=== PATIENT | female | born 1985 | race African-American/Black ===

== ENCOUNTER 2016-08-08 15:48 | Observation (INO) | payer MEDICAID ==
[2016-08-08 16:44] LABS: URINE BILIRUBIN NEGATIVE (NEG); URINE BLOOD SMALL (NEG); URINE GLUCOSE (UA) NEGATIVE (NEG); URINE KETONE NEGATIVE (NEG); URINE LEUKOCYTE ESTERASE POSITIVE (NEG); URINE NITRITE POSITIVE (NEG); URINE PROTEIN MODERATE (NEG); URINE SPECIFIC GRAVITY 1.025 (1.003-1.030)
[2016-08-08 16:45] LABS: URINE APPEARANCE HAZY; URINE COLOR YELLOW
[2016-08-08 16:53] LABS: URINE BACTERIA 3+; URINE RBC 0-2 /[HPF] (0-5); URINE WBC 45-50 /[HPF] (0-5)
[2016-10-02] MEDS ORDERED: IBUPROFEN800 M1 PO (09:21)
[2016-10-02] MEDS ORDERED: COLACE100 M1 PO (09:23)
[2016-10-02] MEDS ORDERED: FEOSOL325 M1 PO (09:24)
[2016-10-02] MEDS ORDERED: PERCOCET 5-3251 EACH PO (09:28)
[2016-11-14] MEDS ORDERED: LEXAPRO10 M2 PO (02:23)
[2016-11-14] MEDS ORDERED: PYRIDIUM200 M2 PO (02:41)
[2016-11-14] MEDS ORDERED: MACROBID 100 M100 M1 PO (02:41)
[2016-12-20] MEDS ORDERED: NO HOME MEDICATION XX (23:27)
[2016-12-21] MEDS ORDERED: ZOFRAN ODT4 MG PO (01:51)
== END 2016-08-08 18:15 ==
LOC: LDR 15:48
PROVIDERS: ADMIT Obstetrics & Gynecology
DX: O99.89 Other specified diseases and conditions complicating pregnancy, childbirth and the puerperium (principal); R10.2 Pelvic and perineal pain; O98.313 Other infections with a predominantly sexual mode of transmission complicating pregnancy, third trimester; A56.8 Sexually transmitted chlamydial infection of other sites; Z3A.31 31 weeks gestation of pregnancy; Z98.890 Other specified postprocedural states

== ENCOUNTER 2016-09-15 00:42 | Inpatient (IN) | payer MEDICAID ==
[2016-09-15] MEDS ORDERED: IRON325 M3 PO (01:11)
[2016-09-15] MEDS ORDERED: PRENATAL-U CAPS1 CAP PO (01:11)
[2016-09-15 01:16] LABS: BASO % 0.1 % (0-2); EOS % 2.1 % (0-7); EOSINOPHIL ABSOLUTE COUNT 0.2 tho/cmm (0.0-0.7); HCT-HEMATOCRIT 34.8 % (34.0-49.0); HGB-HEMOGLOBIN 11.4 gm/dl (12.0-15.5); IMMATURE GRANULOCYTES ABSOLUTE 0.03 tho/cmm (0-0.03); IMMATURE GRANULOCYTES PERCENT 0.3 % (0-0.3); LYMPH % 15.2 % (20-45); LYMPH ABSOLUTE COUNT 1.4 tho/cmm (0.8-4.5); MCH (MEAN CORPUSCULAR HGB) 26.7 pg (28.0-32.0); MCHC MEAN CORPUSCULAR HGB CONC 32.8 % (32.0-36.0); MCV (MEAN CELL VOLUME) 81.5 fl (82.0-96.0); MEAN PLATELET VOLUME 9.8 cmc (9.4-12.4); MONO % 3.3 % (0-12); MONOCYTE ABSOLUTE COUNT 0.3 tho/cmm (0.0-1.2); NEUTROPHIL ABSOLUTE COUNT 7.5 tho/cmm (1.6-8.0); NEUTROPHIL-AUTOMATED 7.5 tho/cmm (1.6-8.0); PLATELET COUNT 327 tho/cmm (150-450); RED BLOOD COUNT 4.27 mil/cmm (4.00-5.20); RED CELL DISTRIBUTION WIDTH 15.5 % (12.4-16.4); WHITE BLOOD COUNT 9.5 tho/cmm (4.0-10.0)
[2016-09-15 01:46] LABS: ALB/GLOB RATIO 0.4 (0.8-2.0); ALBUMIN 1.9 g/dl (3.5-5.0); ALKALINE PHOSPHATASE 126 U/L (33-138); ALT/SGPT 11 U/L (12-78); ANION GAP 14 mmol/L (0-20); AST/SGOT 22 U/L (10-40); BILIRUBIN,TOTAL 0.2 mg/dl (0-1.5); CALCIUM 8.2 mg/dl (8.5-10.5); CARBON DIOXIDE-VENOUS 19 mmol/L (22-32); CHLORIDE 107 mmol/l (96-110); CREATININE 0.52 mg/dl (0.50-1.10); GLUCOSE 97 mg/dL (70-110); POTASSIUM 3.7 mmol/L (3.7-5.1); SODIUM 136 mmol/L (135-145); eGFR VALUE FOR BLACK >90 mL/Min
[2016-09-15 02:02] LABS: BLOOD UREA NITROGEN 6 mg/dl (6-24)
[2016-09-15 02:06] LABS: MAGNESIUM 1.7 mg/dl (1.8-2.6)
[2016-09-15 03:19] LABS: INR 0.9 INR (0.9-1.1); PROTHROMBIN TIME 10.1 SECONDS (9.0-13.6)
[2016-09-15] MEDS ORDERED: ROBITUSSIN NIG237 ML PO (05:54)
--- NOTE | 2016-09-15 09:05 | NUR ---
MEWS SCORE CALCULATED TO BE A 6, [facility] J ROBERT NOTIFIED. [facility] ON L&D NOTIFIED. CCU [facility] NOTIFIED. ADVISED TO CALL IMS. IMS CALLED AND WILL COME EVALUATE PATIENT SUSIE.
[2016-09-15 10:26] LABS: ABG CO2 ARTERIAL 21 mmol/L (21-27); ARTERIAL BLD GAS O2 SATURATION 96 % (95-98); ARTERIAL BLOOD GAS PCO2 30 mmHg (32-45); ARTERIAL PO2 82 mmHg (70-100); BICARBONATE 20 mmol/L (21-28); BLOOD GAS BASE EXCESS -4 mM/L (-/+3); PH 7.43 Units (7.35-7.45)
[2016-09-15 11:03] LABS: PROCALCITONIN <0.05 ng/ml (0.05-0.09)
[2016-09-16 06:58] LABS: BASO % 0.4 % (0-2); EOS % 3.6 % (0-7); EOSINOPHIL ABSOLUTE COUNT 0.3 tho/cmm (0.0-0.7); HCT-HEMATOCRIT 31.9 % (34.0-49.0); HGB-HEMOGLOBIN 10.3 gm/dl (12.0-15.5); IMMATURE GRANULOCYTES ABSOLUTE 0.02 tho/cmm (0-0.03); IMMATURE GRANULOCYTES PERCENT 0.3 % (0-0.3); LYMPH ABSOLUTE COUNT 2.3 tho/cmm (0.8-4.5); MCH (MEAN CORPUSCULAR HGB) 26.3 pg (28.0-32.0); MCHC MEAN CORPUSCULAR HGB CONC 32.3 % (32.0-36.0); MCV (MEAN CELL VOLUME) 81.4 fl (82.0-96.0); MEAN PLATELET VOLUME 9.7 cmc (9.4-12.4); MONO % 4.9 % (0-12); MONOCYTE ABSOLUTE COUNT 0.3 tho/cmm (0.0-1.2); NEUTROPHILS % 57.8 % (40-80); PLATELET COUNT 300 tho/cmm (150-450); RED BLOOD COUNT 3.92 mil/cmm (4.00-5.20); RED CELL DISTRIBUTION WIDTH 15.8 % (12.4-16.4); WHITE BLOOD COUNT 6.9 tho/cmm (4.0-10.0)
[2016-09-16 07:09] LABS: ANION GAP 12 mmol/L (0-20); BLOOD UREA NITROGEN 9 mg/dl (6-24); C-REACTIVE PROTEIN 8.5 mg/dl (0-0.9); CARBON DIOXIDE-VENOUS 21 mmol/L (22-32); CHLORIDE 112 mmol/l (96-110); CREATININE 0.45 mg/dl (0.50-1.10); POTASSIUM 3.8 mmol/L (3.7-5.1); SODIUM 141 mmol/L (135-145); eGFR VALUE FOR BLACK >90 mL/Min
[2016-09-16 07:19] LABS: GLUCOSE 64 mg/dL (70-110)
[2016-09-17 05:17] LABS: ANION GAP 11 mmol/L (0-20); BLOOD UREA NITROGEN 9 mg/dl (6-24); C-REACTIVE PROTEIN 4.8 mg/dl (0-0.9); CALCIUM 7.9 mg/dl (8.5-10.5); CARBON DIOXIDE-VENOUS 22 mmol/L (22-32); CHLORIDE 112 mmol/l (96-110); CREATININE 0.47 mg/dl (0.50-1.10); GLUCOSE 90 mg/dL (70-110); POTASSIUM 3.8 mmol/L (3.7-5.1); SODIUM 141 mmol/L (135-145); eGFR VALUE FOR BLACK >90 mL/Min
[2016-09-17 05:39] LABS: PROCALCITONIN <0.05 ng/ml (0.05-0.09)
[2016-09-17 06:19] LABS: BASO % 0.3 % (0-2); EOS % 2.5 % (0-7); EOSINOPHIL ABSOLUTE COUNT 0.2 tho/cmm (0.0-0.7); HCT-HEMATOCRIT 30.6 % (34.0-49.0); HGB-HEMOGLOBIN 9.7 gm/dl (12.0-15.5); IMMATURE GRANULOCYTES ABSOLUTE 0.05 tho/cmm (0-0.03); IMMATURE GRANULOCYTES PERCENT 0.6 % (0-0.3); LYMPH % 38.8 % (20-45); LYMPH ABSOLUTE COUNT 3.1 tho/cmm (0.8-4.5); MCH (MEAN CORPUSCULAR HGB) 26.4 pg (28.0-32.0); MCHC MEAN CORPUSCULAR HGB CONC 31.7 % (32.0-36.0); MCV (MEAN CELL VOLUME) 83.2 fl (82.0-96.0); MEAN PLATELET VOLUME 9.8 cmc (9.4-12.4); MONO % 4.1 % (0-12); MONOCYTE ABSOLUTE COUNT 0.3 tho/cmm (0.0-1.2); NEUTROPHIL ABSOLUTE COUNT 4.2 tho/cmm (1.6-8.0); NEUTROPHIL-AUTOMATED 4.2 tho/cmm (1.6-8.0); NEUTROPHILS % 53.7 % (40-80); PLATELET COUNT 316 tho/cmm (150-450); RED BLOOD COUNT 3.68 mil/cmm (4.00-5.20); RED CELL DISTRIBUTION WIDTH 15.8 % (12.4-16.4); WHITE BLOOD COUNT 7.9 tho/cmm (4.0-10.0)
[2016-09-18 09:30] LABS: BASO % 0.2 % (0-2); EOS % 2.2 % (0-7); EOSINOPHIL ABSOLUTE COUNT 0.2 tho/cmm (0.0-0.7); HCT-HEMATOCRIT 30.9 % (34.0-49.0); IMMATURE GRANULOCYTES ABSOLUTE 0.07 tho/cmm (0-0.03); IMMATURE GRANULOCYTES PERCENT 0.8 % (0-0.3); LYMPH % 31.6 % (20-45); LYMPH ABSOLUTE COUNT 2.7 tho/cmm (0.8-4.5); MCH (MEAN CORPUSCULAR HGB) 26.5 pg (28.0-32.0); MCHC MEAN CORPUSCULAR HGB CONC 32.4 % (32.0-36.0); MCV (MEAN CELL VOLUME) 81.7 fl (82.0-96.0); MEAN PLATELET VOLUME 9.3 cmc (9.4-12.4); MONOCYTE ABSOLUTE COUNT 0.3 tho/cmm (0.0-1.2); NEUTROPHIL ABSOLUTE COUNT 5.4 tho/cmm (1.6-8.0); NEUTROPHIL-AUTOMATED 5.4 tho/cmm (1.6-8.0); NEUTROPHILS % 62.2 % (40-80); PLATELET COUNT 330 tho/cmm (150-450); RED BLOOD COUNT 3.78 mil/cmm (4.00-5.20); RED CELL DISTRIBUTION WIDTH 15.7 % (12.4-16.4); WHITE BLOOD COUNT 8.7 tho/cmm (4.0-10.0)
[2016-09-18 09:43] LABS: ANION GAP 11 mmol/L (0-20); BLOOD UREA NITROGEN 8 mg/dl (6-24); C-REACTIVE PROTEIN 2.4 mg/dl (0-0.9); CALCIUM 8.1 mg/dl (8.5-10.5); CARBON DIOXIDE-VENOUS 23 mmol/L (22-32); CHLORIDE 111 mmol/l (96-110); CREATININE 0.48 mg/dl (0.50-1.10); GLUCOSE 78 mg/dL (70-110); SODIUM 141 mmol/L (135-145); eGFR VALUE FOR BLACK >90 mL/Min
[2016-09-18 10:25] LABS: PROCALCITONIN <0.05 ng/ml (0.05-0.09)
[2016-09-18] MEDS ORDERED: ZITHROMAX250 M1 PO (10:34)
[2016-09-18] MEDS ORDERED: AUGMENTIN 875-1 EAC2 PO (10:35)
[2016-10-02] MEDS ORDERED: IBUPROFEN800 M1 PO (09:21)
[2016-10-02] MEDS ORDERED: COLACE100 M1 PO (09:23)
[2016-10-02] MEDS ORDERED: FEOSOL325 M1 PO (09:24)
[2016-10-02] MEDS ORDERED: PERCOCET 5-3251 EACH PO (09:28)
[2016-11-14] MEDS ORDERED: LEXAPRO10 M2 PO (02:23)
[2016-11-14] MEDS ORDERED: MACROBID 100 M100 M1 PO (02:41)
[2016-11-14] MEDS ORDERED: PYRIDIUM200 M2 PO (02:41)
[2016-12-20] MEDS ORDERED: NO HOME MEDICATION XX (23:27)
[2016-12-21] MEDS ORDERED: ZOFRAN ODT4 MG PO (01:51)
== END 2016-09-18 12:35 | DRG 781 ==
LOC: EDMED 00:42 → EMR2 05:46 → OBGD 05:48
PROVIDERS: Emergency Medicine; Family Medicine; Internal Medicine Cardiovascular Disease; ADMIT Hospitalist
PROC: 5A09357 Assistance with Respiratory Ventilation, Less than 24 Consecutive Hours, Continuous Positive Airway Pressure (ICD-10-PCS; principal; 2016-09-15)
DX: O99.513 Diseases of the respiratory system complicating pregnancy, third trimester (principal); Z68.43 Body mass index [BMI] 50.0-59.9, adult; E66.01 Morbid (severe) obesity due to excess calories; O99.213 Obesity complicating pregnancy, third trimester; Z3A.37 37 weeks gestation of pregnancy
CPT/HCPCS: C8929; J0456; J0696; J7030; J7050